=== PATIENT | male | born 1995 | race American Indian/Alaskan Native ===

== ENCOUNTER 2019-04-25 04:21 | Emergency (ER) | payer OTHER, SELFPAY ==
--- NOTE | 2019-04-25 05:01 | Emergency Department Report ---
<OKSANA CAIN - Last Filed: 04/25/19 15:10> History of Present Illness - General Chief Complaint: Overdose Stated Complaint: SI Time Seen by Provider: 04/25/19 04:29 - Related Data Home Medications Medication Instructions Recorded Confirmed Last Taken Citalopram [celeXA] 10 mg PO QDAY 07/02/16 04/25/19 Unknown Allergies Allergy/AdvReac Type Severity Reaction Status Date / Time No Known Allergies Allergy Verified 06/30/16 20:10 ED Past Medical Hx - Medications Home Medications: Home Medications Medication Instructions Recorded Confirmed Last Taken Type Citalopram [celeXA] 10 mg PO QDAY 07/02/16 04/25/19 Unknown History ED Medical Decision Making - Lab Data Result diagrams: 04/25/19 04:41 04/25/19 04:41 - Medical Decision Making medically cleared ED Disposition Clinical Impression: Alcohol intoxication, Intentional overdose of drug in tablet form, Suicide attempt Disposition: [id number]/TX-[id number] PSY HOSP/PSY UNIT Condition: Stable <ANABEL CAMERON - Last Filed: 04/25/19 15:56> ED Course - Reevaluation(s) Reevaluation #2: 04/25/19 15:56 Patient is medically cleared at this time for psychiatric evaluation. ED Medical Decision Making - Lab Data Result diagrams: 04/25/19 04:41 04/25/19 04:41 <TAYLOR CAMERON - Last Filed: 04/27/19 17:47> History of Present Illness - General Source: patient, police Mode of arrival: Ambulatory Limitations: No Limitations - History of Present Illness Initial Comments: Mr. Keller is a [age]-old male with history of alcohol who was brought by police in handcuffs for overdose intentional of melatonin and xanax. Mother has history of CVA. She will was only able to give limited history due to memory i ssues. She explained that Dakota has been taking Antabuse for the past several months. After his prescription had finished, he began to crave alcohol. He did drink a large container of wine today. This is his first intake of alcohol in 2 months. Mother stated that Dakota asked her to call 911 because he was afraid that he overdosed on melatonin and xanax. He also held scissors to his throat according to her report. Mr. Berg denies overdose. He denies suicidal attempt. He denies overdose. He denies intention to harm himself. He does admit to drinking alcohol. Mother cannot recall previous diagnosis of depression. 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 Complaint: intentional overdose -: Sudden, This morning Intent: unwilling to say How Overdose Was Discovered: family/friend present Context: Intentional Overdose: drug/ETOH problems Associated Symptoms: other (alcoholism) Treatments Prior to Arrival: none ED Review of Systems ROS: Stated complaint: SI Other details as noted in HPI Comment: All other systems reviewed and negative Constitutional: denies: fever, malaise Respiratory: denies: cough Cardiovascular: denies: chest pain ED Past Medical Hx - Past Medical History Previous Medical History?: Yes Hx Psychiatric Treatment: Yes (self-mutilation, depression) - Surgical History Additional Surgical History: unknown - Social History Smoking Status: Never Smoker Substance Use Type: Alcohol ED Physical Exam - General Limitations: No Limitations General appearance: alert, in no apparent distress - Head Head exam: Present: atraumatic, normocephalic - Eye Eye exam: Present: normal appearance - ENT ENT exam: Present: mucous membranes moist - Neck Neck exam: Present: normal inspection, full ROM - Respiratory Respiratory exam: Present: normal lung sounds bilaterally. Absent: respiratory distress, wheezes, rales, rhonchi - Cardiovascular Cardiovascular Exam: Present: regular rate, normal rhythm, normal heart sounds. Absent: systolic murmur, diastolic murmur, rubs, gallop - GI/Abdominal GI/Abdominal exam: Present: soft, normal bowel sounds. Absent: distended, tenderness, guarding, rebound - Rectal Rectal exam: Present: deferred - Extremities Exam Extremities exam: Present: normal inspection - Back Exam Back exam: Present: normal inspection - Neurological Exam Neurological exam: Present: alert, oriented X3, normal gait - Psychiatric Psychiatric exam: Present: agitated, flat affect - Skin Skin exam: Present: warm, dry, intact, normal color. Absent: rash ED Course Vital Signs 04/25/19 04/25/19 04/25/19 04:32 05:32 07:55 Temperature 98.7 F Pulse Rate 114 H 100 H 89 Respiratory 16 18 16 Rate Blood Pressure 142/80 110/47 109/58 [Left] O2 Sat by Pulse 98 97 96 Oximetry 09/04/0504/25/19 04/25/19 09:36 11:18 18:45 Temperature 99.1 F Pulse Rate 82 84 110 H Respiratory 16 16 12 Rate Blood Pressure 108/67 113/58 121/63 [Left] O2 Sat by Pulse 100 100 98 Oximetry 04/25/19 04/26/19 19:30 03:00 Temperature 98.9 F 98.1 F Pulse Rate 118 H 99 H Respiratory 20 20 Rate Blood Pressure 121/71 125/75 [Left] O2 Sat by Pulse 97 99 Oximetry - Reevaluation(s) Reevaluation #1: 04/25/19 06:12 Dakota is currently sedated, protecting airway, in 4 point soft tissue restraints. ED Medical Decision Making - Lab Data Result diagrams: 04/25/19 04:41 04/25/19 04:41 - EKG Data 04/25/19 05:07 EKG obtained 0503 Sinus tachycardia rate 110 beats a minute prolongedQT interval biphasic T waves in anterolateral leads - Medical Decision Making Mr. Rios 3-year-old male with history of alcoholism who presents with reported intentional overdose of melatonin. He also held scissors to history according to his mother who is at bedside. He is agitated and intoxicated. We will observe patient until sobriety and potential sedation have resolved. We will will observe patient until medically clear. My colleague will arrange appropriate disposition. I anticipate that he will be observed for in the emergency department until intoxication and potential sedation have resolved. At this time placed on 1013 involuntary hold precautions. Awaiting evaluation by recommendations by our psychiatric team Due to agitation, lack of cooperation and flight risk, patient required soft tissue restraints. I performed reassessments and initial [id number]. According to [place] [facility] jury consultant, Melatonin is not likely to be to be toxic. xanax and alcohol will cause sedation ventricular dysrhythmias, hypoglycemia. Poison Control consultation recommended IVF and observation until mental status improves. Recommended sedation benzodiazepines. Avoid antipsychotics according to poison control expert. I discussed prolonged QT interval with jury consultant. With normal QRS, arrhythmia is currently not a concern at this time. I have reviewed labs, BAL 0.20, H&H hemoconcentration, I have reviewed the electronic medical record. Patient was transferred to [facility] for inpatient psychiatric services. Critical Care Time: Yes Critical care time in (mins) excluding proc time.: 40 Critical care attestation.: If time is entered above; I have spent that time in minutes in the direct care of this critically ill patient, excluding procedure time. 40 minutes of critical care time excluding procedures were used in the care of the patient. Patient required multiple assessments and interventions. I reviewed the electronic medical record. I spoke with consultants involved in the care of the patient. I came to the bedside immediately. I obtained history from the police lieutenant, mother and patient. I was concerned for toxic adriana stion. I was concerned for impending airway compromise. I was concerned for patient elopement in this high risk scenario. ED Disposition Is pt being admited?: No Does the pt Need Aspirin: No
[2019-04-25 05:05] LABS: Basophils % (Auto) 0.6 % (0.0-1.8); Eosinophils # (Auto) 0.2 K/mm3 (0.0-0.4); Eosinophils % (Auto) 3.6 % (0.0-4.3); Hematocrit 48.6 % (35.5-45.6); Hemoglobin 16.3 gm/dl (11.8-15.2); Lymphocytes # (Auto) 1.7 K/mm3 (1.2-5.4); Lymphocytes % (Auto) 25.8 % (13.4-35.0); Mean Corpuscular HGB Conc 34 % (32-34); Mean Corpuscular Volume 90 fl (84-94); Monocytes # (Auto) 0.4 K/mm3 (0.0-0.8); Platelet Count 266 K/mm3 (140-440); Red Blood Count 5.41 M/mm3 (3.65-5.03); Red Cell Distribution Width 13.2 % (13.2-15.2)
[2019-04-25] MEDS ORDERED: ATIVAN IM STA (05:06)
[2019-04-25] MEDS ORDERED: NACL 0.9% 1000 ML 1,000 ML IV ONE ×2 (05:14→05:15)
[2019-04-25 05:25] LABS: BUN/Creatinine Ratio 9; Blood Urea Nitrogen 8 mg/dL (9-20); Calcium 9.3 mg/dL (8.4-10.2); Hemolysis Index 12
[2019-04-25 06:07] LABS: Bilirubin,Urine SM (Negative); Blood,Urine MOD (Negative); Color,Urine Yellow (Yellow); Mucus,Urine FEW /HPF; Protein,Urine <15 mg/dL mg/dL (Negative)
[2019-04-25 06:16] LABS: Amphetamine Screen,Urine PRESUMPTIVE NEGATIVE; Benzodiazepines Screen,Urine PRESUMPTIVE NEGATIVE; Cannabinoid Screen,Urine PRESUMPTIVE NEGATIVE; Cocaine Screen,Urine PRESUMPTIVE NEGATIVE; Methadone Screen,Urine PRESUMPTIVE NEGATIVE; Opiate Screen,Urine PRESUMPTIVE NEGATIVE
[2019-04-25 06:25] LABS: Ictotest,Urine Positive (Negative)
[2019-04-25] MEDS ORDERED: ATIVAN IV PRN (11:13)
[2019-04-25] MEDS ORDERED: LIBRIUM PO PRN (11:13)
[2019-04-25] MEDS ORDERED: ATIVAN PO PRN ×2 (11:13)
--- NOTE | 2019-04-25 15:39 | Consultation ---
History of Present Illness - Reason for Consult Consult date: 04/25/19 Reason for consult: psychiatric evaluation - Chief Complaint Chief complaint: "I'm leaving." - History of Present Psychiatric Illness Mr. Keller is a 23 year-old male with history of alcohol use disorder who was brought by police in handcuffs for overdose intentional of melatonin and xanax. Per the record, which is consistent with psych eval: [Mother has history of CVA. She will was only able to give limited history due to memory issues. She explained that Dakota has been taking Antabuse for the past several months. After his prescription had finished, he began to crave alcohol. He drank a large container of wine before arrival. This is his first intake of alcohol in 2 months. Mother stated that Dakota asked her to call 911 because he was afraid that he overdosed on melatonin and xanax. He also held scissors to his throat according to her report.] Mr. Berg denies overdose. He denies suicidal attempt. He denies overdose. He denies intention to harm himself. He does admit to drinking alcohol. He states he is leaving and began taking off monitors. Medications and Allergies Allergies Allergy/AdvReac Type Severity Reaction Status Date / Time No Known Allergies Allergy Verified 06/30/16 20:10 Home Medications Medication Instructions Recorded Confirmed Last Taken Type Citalopram [celeXA] 10 mg PO QDAY 07/02/16 04/25/19 Unknown History Active Meds: Active Medications Chlordiazepoxide HCl (Librium) 50 mg PO Q1H PRN PRN Reason: CIWA-Ar 8-15 Lorazepam (Ativan) 2 mg PO Q1H PRN PRN Reason: CIWA-Ar 8-15 Lorazepam (Ativan) 4 mg PO Q1H PRN PRN Reason: CIWA-Ar 16-25 Lorazepam (Ativan) 4 mg IV Q15MIN PRN PRN Reason: CIWA-Ar >25 Past psychiatric history - past Psychiatric treatment and history Psych: Addictions (alcohol use disorder, was on antabuse for 2 months and did well) - Social History Social history: other (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 lives with his mother) Mental Status Exam - Vital signs Last Vital Signs Temp 98.7 F 04/25/19 04:32 Pulse 84 04/25/19 11:18 Resp 16 04/25/19 11:18 BP 113/58 04/25/19 11:18 Pulse Ox 100 04/25/19 11:18 - Exam Orientation: place, person Affect: agitated Mood: congruent with affect Thought content: other (focused on leaving the facility) Thought Process: Tangential Perceptions: other (unable to assess) Speech: minimal response Concentration: distractible Motor activity: other (slow. sat up in bed and said, "I'm leaving.") Level of consciousness: alert Interaction: uncooperative Results Result Diagrams: 04/25/19 04:41 04/25/19 04:41 Abnormal lab results 04/25/19 04/25/19 04/25/19 Range/Units 04:41 04:41 04:41 RBC (3.65-5.03) M/mm3 Hgb (11.8-15.2) gm/dl Hct (35.5-45.6) % BUN 8 L (9-20) mg/dL Glucose 136 H (75-100) mg/dL Salicylates < 0.3 L (2.8-20.0) mg/dL Acetaminophen < 5.0 L (10.0-30.0) ug/mL Plasma/Serum Alcohol (0-0.07) % 04/25/19 04/25/19 Range/Units 04:41 04:41 RBC 5.41 H (3.65-5.03) M/mm3 Hgb 16.3 H (11.8-15.2) gm/dl Hct 48.6 H (35.5-45.6) % BUN (9-20) mg/dL Glucose (75-100) mg/dL Salicylates (2.8-20.0) mg/dL Acetaminophen (10.0-30.0) ug/mL Plasma/Serum Alcohol 0.20 H (0-0.07) % All other labs normal. Assessment and Plan Assessment and plan: Impression: overdose on sedative/hypnotic (xanax) and melatonin Alcohol use disorder, severe He is agitated Recommendation: follow medical recommendations, which include recommendations from Poison Control CIWA monitoring recommended dispo: inpatient psychiatric facility when medically cleared will staff with Dr. Causey
[2019-04-26 05:21] VITALS: BP 125/75
== END 2019-04-26 08:00 ==
LOC: EEVIPCON 04:21 → ED 04:21
DX: T42.4X2A Poisoning by benzodiazepines, intentional self-harm, initial encounter (principal); T38.892A Poisoning by other hormones and synthetic substitutes, intentional self-harm, initial encounter; F32.9 Major depressive disorder, single episode, unspecified; Y92.89 Other specified places as the place of occurrence of the external cause
CPT/HCPCS: 36415; 80048; 80307; 81001; 85025; 93005; 93010; 96372; 99291; J2060; J7030; 80320; 96360; 96361; G0480